=== PATIENT | female | born 1995 | race Two or more races ===

== ENCOUNTER 2016-12-25 00:44 | Emergency (ER) | payer BC ==
--- NOTE | ~2016-12-25 | ER ---
PATIENT'S NAME: [facility] AGE: 21 Y [address] ROOM: [place] [address] LOCATION: [facility] ADMIT DATE: 12/25/2016 ER/Outpatient Report DISCHARGE DATE: 12/25/2016 FAMILY PHYSICIAN: Jordan Boone MD ATTENDING PHYSICIAN: Sharath Tobias TIME OF ARRIVAL: 0044 hours. TIME OF EVALUATION: 0047 hours. CHIEF COMPLAINT: Vomiting. HISTORY OF PRESENT ILLNESS: The patient is a 21-year-old female who presents to the emergency department today with a chief complaint of vomiting. She reports this started this evening at about 1830 hours. She has had multiple episodes of vomiting. Denies any fevers or chills. No constipation or diarrhea. No blood in her stool. No dark tarry stools. Last bowel movement was 12/24/2016. Does have some suprapubic abdominal pain. It is achy, dull. It is currently 7/10 in severity. PAST MEDICAL HISTORY: Thyroid cancer and depression. PAST SURGICAL HISTORY: Thyroid, tonsils, and appendectomy. SOCIAL HISTORY: The patient denies any tobacco, alcohol, or illicit drug use. ALLERGIES: EFFEXOR. MEDICATIONS: Levothyroxine. REVIEW OF SYSTEMS: All systems are reviewed by myself are negative with the exception of those discussed in HPI and past medical history. PHYSICAL EXAMINATION: VITAL SIGNS: Weight 66 kg. Blood pressure 117/64, pulse 105, respiratory PATIENT'S NAME: [facility] AGE: 21 Y [address] ROOM: [place] [address] LOCATION: [facility] ADMIT DATE: 12/25/2016 ER/Outpatient Report DISCHARGE DATE: 12/25/2016 FAMILY PHYSICIAN: Jordan Boone MD ATTENDING PHYSICIAN: Sharath Tobias rate 22, temperature 99.6, and oxygen saturation 98% on room air. GENERAL: The patient is a 21-year-old female, appears her stated age, in no acute distress at this time. HEENT: Normocephalic, atraumatic. Pupils are equal, round, and reactive. Mucous membranes are moist. NECK: Supple. There is no nuchal rigidity. CARDIOVASCULAR: Tachycardic. No murmurs, rubs, or gallops. LUNGS: Clear to auscultation bilaterally. No wheezes, rales, or rhonchi. ABDOMEN: Soft. Mild suprapubic tenderness to palpation. No rebound, rigidity, or guarding. Positive bowel sounds. MUSCULOSKELETAL: The patient moves all 4 extremities. A 5/5 muscle strength. SKIN: Warm, dry. No rashes or lesions noted. LABS AND X-RAYS: Labs and x-rays are obtained. Urinalysis shows 100 leukocyte esterase, 15 protein, 5 ketones, 10-20 wbc's, 5-10 epithelials, and many bacteria. CBC: White blood cell count is 17.6; otherwise, unremarkable. CMP is unremarkable. LFTs normal. Urine hCG is negative. IMPRESSION: 1. Acute urinary tract infection, suspect bladder. 2. Acute nonsurgical suprapubic abdominal pain. 3. Leukocytosis. 4. Initial visit. EMERGENCY DEPARTMENT COURSE: The patient brought back to the examination room. Seen and evaluated by myself. IV is established. Laboratory analysis and imaging are obtained as described above. The patient is given 4 mg of Zofran IV as well as an L of normal saline. She is given 30 mg of Toradol IV with improvement in the patient's symptoms. She has not had any active vomiting after the initiation of Zofran. I have discussed results with the patient. I have reexamined the patient's abdominal exam. She continues to have nonsurgical abdominal exam at this time. I have written a prescription for Macrobid as well as Zofran for home. I have discussed [id number] instructions including worsening symptoms or any other concerns to return to the emergency department as soon as possible. The patient is agreeable. She is without further questions at this time. DISPOSITION: The patient is discharged home in good condition. PATIENT'S NAME: LIAM PROCTOR [facility] AGE: 21 Y [address] ROOM: [place], [place] [address] LOCATION: [facility] ADMIT DATE: 12/25/2016 ER/Outpatient Report DISCHARGE DATE: 12/25/2016 FAMILY PHYSICIAN: Jordan Boone MD ATTENDING PHYSICIAN: Sharath Tobias DO KJR/modl /[id number] d: 12/25/16 0408 t: 12/28/16 1900, OUTPATIENT REPORT
[~2016-12-25 00:44] MED LIST: LEVOTHROID (S100 MCG; LEVOTHROID (S100 MCG PO; MOTRIN600 MG PO; NORCO 5-325 MG1 TAB PO
[2016-12-25 01:02] LABS: BILIRUBIN URINE NEGATIVE (NEGATIVE); BLOOD URINE NEGATIVE /UL (NEGATIVE); COLOR URINE YELLOW (YELLOW); GLUCOSE URINE NEGATIVE (NEGATIVE); KETONE URINE 5 mg/dL (NEGATIVE); LEUKOCYTES URINE 100 /UL (NEGATIVE); NITRITE URINE NEGATIVE (NEGATIVE); PROTEIN URINE 15 mg/dL (NEGATIVE); TURBIDITY URINE 2+ (CLEAR); UROBILINOGEN URINE NORMAL (NORMAL)
[2016-12-25 01:09] LABS: RBC URINE NEGATIVE #/HPF (NEGATIVE)
[2016-12-25 01:09] LABS: BASOPHIL % 0.2 %; EOSINOPHIL # 0.1 K/uL (0.0-0.5); EOSINOPHIL % 0.7 %; HEMATOCRIT 41.1 % (33.0-46.0); HEMOGLOBIN 13.7 g/dL (11.0-15.0); IMMATURE GRANULOCYTE # 0.1 K/uL (0.0-0.3); IMMATURE GRANULOCYTE % 0.3 %; LYMPHOCYTE # 1.3 K/uL (0.8-4.0); LYMPHOCYTE % 7.2 %; MCH 28.9 pg (27.0-34.0); MCHC 33.3 gm/dL (32.0-36.5); MCV 86.7 fl (83.0-98.0); MONOCYTE # 0.7 K/uL (0.0-1.0); MONOCYTE % 3.7 %; MPV 10.9 fl (9.4-12.4); NEUTROPHIL # (ANC) 15.5 K/uL (1.8-7.8); NEUTROPHIL % 87.9 %; NRBC % 0 /100WBC (0-0.00); PLATELET COUNT 251 K/uL (150-450); RBC 4.74 M/uL (3.50-5.00); RDW-CV 12.7 % (11.9-14.6)
[2016-12-25 01:10] LABS: BACTERIA URINE MANY (NEGATIVE); MUCUS URINE 3+ (NEGATIVE)
[2016-12-25 01:10] LABS: WBC 17.6 K/uL (4.0-11.0)
[2016-12-25 01:25] LABS: ALBUMIN 3.8 gm/dL (3.5-5.0); ALK PHOS 91 IU/L (33-138); ALT 33 IU/L (12-78); ANION GAP 13.9 (10.0-19.0); AST 27 IU/L (10-40); BLOOD UREA NITROGEN 14 mg/dL (6-24); CALCIUM 8.5 mg/dL (8.5-10.5); CHLORIDE 109 mMol/L (96-110); CO2 21 mMol/L (22-32); CREATININE 0.9 mg/dL (0.5-1.1); ESTIMATED GFR (MDRD EQUATION) > 60; POTASSIUM 3.9 mMol/L (3.7-5.1); SODIUM 140 mMol/L (135-145); TOTAL BILIRUBIN 0.3 mg/dL (0.0-1.5); TOTAL PROTEIN 8.2 g/dL (6.0-8.4)
== END 2016-12-25 02:15 | disposition disaster alternative care site (69) ==
LOC: GMED 00:44
PROVIDERS: Emergency Medicine
DX: N39.0 Urinary tract infection, site not specified (principal); D72.829 Elevated white blood cell count, unspecified; Z88.8 Allergy status to other drugs, medicaments and biological substances; Z79.899 Other long term (current) drug therapy; Z90.49 Acquired absence of other specified parts of digestive tract; Z90.89 Acquired absence of other organs; F32.9 Major depressive disorder, single episode, unspecified; Z85.850 Personal history of malignant neoplasm of thyroid
CPT/HCPCS: J1885; J2405; J7030